=== PATIENT | male | born 1995 | race Hispanic/Latino ===

== ENCOUNTER 2018-07-15 17:32 | Emergency (ER) | payer BC ==
[2018-07-15 17:44] VITALS: RESP 16; O2SAT 100
[2018-07-15] MEDS ORDERED: Sodium Chloride 0.9% 1,000 ML IV STA (17:58)
[2018-07-15] MEDS ORDERED: Lidocaine 1% Inj (20ml) INFIL ONE (17:59)
[2018-07-15] MEDS ORDERED: Tdap Vaccine 0.5 ml Vial (10-64 yrs) IM ONE ×2 (17:59→18:10)
[2018-07-15] MEDS ORDERED: Lidocaine 1% Inj (20ml) ONE (18:09)
[2018-07-15 18:28] LABS: BASO % 0.5 % (0.0-2.0); EOS % 0.6 % (0.0-4.0); HEMOGLOBIN 13.7 g/dL (12.0-18.0); LYMPH # 2.1 K/uL (1.0-4.3); LYMPH % 30.2 % (20.0-40.0); MEAN CELL VOLUME 93.6 fl (80.0-94.0); MEAN CORPUSCULAR HEMOGLOBIN 30.4 pg (27.0-31.0); MEAN CORPUSCULAR HGB CONC 32.4 g/dL (33.0-37.0); MEAN PLATELET VOLUME 7.7 fl (7.2-11.7); MONO # 0.6 K/uL (0.0-0.8); MONO % 8.5 % (0.0-10.0); NEUT # 4.3 K/uL (1.8-7.0); NEUT % 60.2 % (50.0-75.0); NRBC % 0.1 % (0.0-0.0); RBC 4.52 Mil/uL (4.40-5.90); RED CELL DISTRIBUTION WIDTH 13.5 % (11.5-14.5); WHITE BLOOD COUNT 7.1 K/uL (4.8-10.8)
[2018-07-15 18:39] LABS: ALB/GLOB RATIO 1.4 (1.0-2.1); ALBUMIN 4.4 g/dL (3.5-5.0); ALT/SGPT 27 U/L (21-72); AST/SGOT 24 U/L (17-59); BLOOD UREA NITROGEN 19 mg/dl (9-20); CALCIUM 9.3 mg/dL (8.4-10.2); GFR NON-AFRICAN AMERICAN > 60
--- NOTE | 2018-07-15 18:53 | ED PDOC ---
Syncope/Near Syncope/Dizziness Time Seen by Provider: 07/15/18 17:51 Chief Complaint (Nursing): Syncope History Per: Patient Additional Complaint(s): Pt. states at approximately 1700 today he accidentally cut his L thumb with a knife. His girlfriend was attempting to clean the wound as he as sitting down and he felt weak and lost consciousness. As per his girlfriend he was unconscious for approximately 30 seconds then regained consciousness without confusion, convulsion, or incontinence. Currently without any symptoms. Denies chest pain, headache, head injury, numbness, tingling, other injury. Past Medical History Reviewed: Historical Data, Nursing Documentation, Vital Signs Vital Signs: Last Vital Signs Temp 97.4 F L 07/15/18 17:39 Pulse 49 L 07/15/18 17:39 Resp 16 07/15/18 17:39 BP 116/79 07/15/18 17:39 Pulse Ox 100 07/15/18 17:39 - Surgical History Surgical History: No Surg Hx - Family History Family History: States: No Known Family Hx - Immunization History Hx Tetanus Toxoid Vaccination: No - Allergies Allergies/Adverse Reactions: Allergies Allergy/AdvReac Type Severity Reaction Status Date / Time peanut Allergy RASH Verified 07/15/18 17:35 Review of Systems ROS Statement: Except As Marked, All Systems Reviewed And Found Negative Physical Exam - Physical Exam Appears: Positive for: Well, Non-toxic, No Acute Distress Head Exam: Positive for: ATRAUMATIC, NORMAL INSPECTION, NORMOCEPHALIC Skin: Positive for: Normal Color, Warm. Negative for: Rash Eye Exam: Positive for: Normal appearance Neck: Positive for: Normal, Painless ROM Cardiovascular/Chest: Positive for: Regular Rate, Rhythm Respiratory: Positive for: CNT, Normal Breath Sounds Pulses-Radial (L): 2+ Gastrointestinal/Abdominal: Positive for: Soft. Negative for: Tenderness Extremity: Positive for: Other (L thumb on distal phalanx with 0.5cm J-shaped linear laceration - L thumbnail is intact) Neurologic/Psych: Positive for: Alert, Oriented (x3), Gait (steady, unassisted). Negative for: Aphasia, Facial Droop - Laboratory Results Result Diagrams: 07/15/18 18:20 07/15/18 18:20 - ECG ECG: Positive for: Interpreted By Me ECG Rhythm: Positive for: Sinus Bradycardia. Negative for: ST/T Changes Rate: 44 O2 Sat by Pulse Oximetry: 100 - Progress ED Course And Treament: Pt. reports that he is an avid long distance swimmer and has a hx of low heart rate. On re-evaluation, pt. in no distress. Offers no complaints. Labs reviewed and informed of results. Agrees with plan and care. Procedures - Time-Out Type of Procedure: Laceration repair Site of Procedure: L thumb Correct Patient: Yes Correct Procedure: Yes Correct Site Marked: Yes - Laceration/Wound Repair thumb laceration Wound Length (cm): 0.5 Wound's Depth, Shape: superficial, irregular Wound Explored: clean Irrigated w/ Saline (ccs): 100 Betadine Prep?: Yes Anesthesia: 1% Lidocaine Volume Anesthetic (ccs): 3 Wound Repaired With: Sutures Suture Size/Type: 6:0 (ethilon) Number of Sutures: 3 Wound Complexity: Simple Sterile Dressing Applied?: Yes Disposition - Clinical Impression Clinical Impression: Syncope, Finger laceration - Patient ED Disposition Is Patient to be Admitted: No - [facility] Disposition: Routine/Home Disposition Time: 18:53 Condition: STABLE Additional Instructions: SUTURE REMOVAL IN 5-7 DAYS RETURN TO ED IMMEDIATELY FOR ANY CONCERNS OR QUESTIONS GINA LEWIS, thank you for letting us take care of you today. Your provider was Lisa Chavez MD and you were treated for FINGER LACERATION/SYNCOPY. The emergency medical care you received today was directed at your acute symptoms. If you were prescribed any medication, please fill it and take as directed. It may take several days for your symptoms to resolve. Return to the Emergency Department if your symptoms worsen, do not improve, or if you have any other problems. Please contact your doctor or call one of the physicians/clinics you have been referred to that are listed on the Patient Visit Information form that is included in your discharge packet. Bring any paperwork you were given at discharge with you along with any medications you are taking to your follow up visit. Our treatment cannot replace ongoing medical care by a primary care provider outside of the emergency department. Thank you for allowing the [facility] team to be part of your care today. If you had an X-Ray or CT scan: A Radiologist will review the ED reading if any change in treatment is needed we will contact you. If you had a blood, urine, or wound culture: It will take several days for the results, if any change in treatment is needed we will contact you. If you had an STI test: It will take 48 hours for the results. Please call after 1 week if you have not heard back. Instructions: Laceration Repair With Stitches (DC), Vasovagal Response (DC) Print Language: SWAZI
[2018-07-15 19:13] VITALS: BP 118/68; TEMP 98
[2018-07-15 19:15] VITALS: PULSE 44
--- NOTE | 2018-07-16 10:07 | CARD ---
APPROVED REPORT Date of service: 07/15/2018 EKG Measurement Heart [id number] <Conclusion> Marked sinus bradycardia Abnormal ECG
== END 2018-07-15 19:13 | disposition home or self-care (01) ==
LOC: H.ER 17:32
DX: S61.012A Laceration without foreign body of left thumb without damage to nail, initial encounter (principal); W26.0XXA Contact with knife, initial encounter; Y92.89 Other specified places as the place of occurrence of the external cause; R55 Syncope and collapse
CPT/HCPCS: 12001; 80053; 82948; 85025; 90471; 90715; 93005; 99285; J7030